=== PATIENT | female | born 1970 | race Two or more races ===

== ENCOUNTER 2017-02-01 23:04 | Emergency (ER) | payer MEDICARE, MEDICAID ==
[~2017-02-01 23:04] MED LIST: GABAPENTIN100 M1 PO; MELOXICAM7.5 M1 PO; PROZAC20 M3 PO
[2017-02-02] MEDS ORDERED: CYCLOBENZAPRINE5 M1 PO (00:46)
[2017-02-02] MEDS ORDERED: BENADRYL25 M3 PO (01:30)
== END 2017-02-02 01:42 ==
LOC: EDMED 23:04
DX: L50.0 Allergic urticaria (principal); F32.9 Major depressive disorder, single episode, unspecified; Z87.891 Personal history of nicotine dependence